=== PATIENT | female | born 1995 ===

== ENCOUNTER → 2016-05-28 | Outpatient (REF) | LOC: WSOH 16:00 | DX: Z02.89 Encounter for other administrative examinations (principal) ==

== ENCOUNTER → 2016-09-09 | Outpatient (REF) | LOC: WSOH 11:13 | DX: Z01.84 Encounter for antibody response examination (principal) ==

== ENCOUNTER → 2017-01-19 | Outpatient (REF) | LOC: WSOH 17:30 | DX: Z02.89 Encounter for other administrative examinations (principal) ==